=== PATIENT | female | born 1970 | race Caucasian/White ===

== ENCOUNTER 2023-05-21 12:50 | Inpatient (IN) | payer MEDICAID, OTHER ==
[~2023-05-21] VITALS: Ht 167.6 cm; Wt 54.0 kg
[2023-05-21] MEDS: SODIUM CHLORIDE 0.9% 1,000 ML IV ONE (13:44)
[2023-05-21 14:21] LABS: BASOPHILS % 0.4 % (0.0-2.0); EOSINOPHILS % 0.7 % (0.0-5.0); HEMATOCRIT. 33.8 % (36.0-48.0); HEMOGLOBIN. 11.4 g/dL (12.0-16.0); LYMPHOCYTES % 11.9 % (20.0-50.0); MEAN CORPUSCULAR HEMOGLOBIN 31.6 pg (28.0-32.0); MEAN CORPUSCULAR HGB CONC 33.8 g/dL (31.0-37.0); MEAN CORPUSCULAR VOLUME 93.4 fL (81.0-99.0); MEAN PLATELET VOLUME 9.2 fl (7.4-10.4); MONOCYTES % 8.6 % (2.0-8.0); NEUTROPHILS % 78.4 % (40.0-76.0); PLATELET 175 x1000/uL (130-400); RED BLOOD CELL COUNT 3.62 mill/uL (4.2-5.4); RED CELL DISTRIBUTION WIDTH 12.8 % (11.6-14.6); WHITE BLOOD COUNT 6.5 x1000/uL (4.5-11.0)
[2023-05-21 14:30] LABS: PROTHROMBIN TIME 10.9 sec (9.6-11.0)
[2023-05-21 14:38] LABS: ALANINE AMINOTRANSFERASE 17 IU/L (10-49); ALBUMIN 4.1 g/dL (3.2-4.8); ASPARTATE AMINOTRANSFERASE 21 IU/L (<34); BILIRUBIN TOTAL 0.3 mg/dL (0.1-1.0); CALCIUM 9.1 mg/dL (8.7-10.4); CARBON DIOXIDE 23 mEq/L (21-32); CHLORIDE 111 mEq/L (98-107); CREATININE 2.1 mg/dL (0.6-1.0); GLUCOSE 105 mg/dL (70-105); POTASSIUM 3.6 mEq/L (3.5-5.1); SODIUM 143 mEq/L (136-145); THYROID STIMULATING HORMONE 2.48 uIU/mL (0.55-4.78); TROPONIN I HIGH SENSITIVITY 6 ng/L (3.0-34); UREA NITROGEN BLOOD 37 mg/dL (9-23)
[2023-05-21 18:58] LABS: CLARITY URINE CLEAR (CLEAR); COLOR URINE YELLOW (YELLOW); GLUCOSE URINE NEGATIVE (NEGATIVE); KETONES URINE NEGATIVE (NEGATIVE); LEUKOCYTE ESTERASE URINE NEGATIVE (NEGATIVE); NITRITE URINE NEGATIVE (NEGATIVE); OCCULT BLOOD URINE NEGATIVE (NEGATIVE); PH URINE 6.5 (4.5-8.0); PROTEIN URINE NEGATIVE (NEGATIVE); SPECIFIC GRAVITY URINE 1.007 (1.005-1.030); UROBILINOGEN URINE 0.2 E.U./dL (0.2-1.0)
[2023-05-21 22:30] VITALS: BP 148/102; PULSE 84; RESP 18; TEMP 98.9
[2023-05-22] VITALS (7 sets, daily range): BP systolic 135–164; BP diastolic 86–102; PULSE 63–84; RESP 16–18; TEMP 97.3–98.9
[2023-05-22] MEDS ORDERED: NALOXONE HCL 0.4MG/ML VIAL IV PRN (00:15)
[2023-05-22 00:24] LABS: TROPONIN I HIGH SENSITIVITY 12 ng/L (3.0-34)
[2023-05-22] MEDS: HYDROCODONE/ACETAMINOPHEN 5/325MG TABLET PO PRN (01:41)
[2023-05-22 06:49] LABS: HEMOGLOBIN 10.7 g/dL (12.0-16.0); MEAN CORPUSCULAR HEMOGLOBIN 32.3 pg (28.0-32.0); MEAN CORPUSCULAR HGB CONC 34.5 g/dL (31.0-37.0); MEAN CORPUSCULAR VOLUME 93.5 fL (81.0-99.0); PLATELET 178 x1000/uL (130-400); RED BLOOD CELL COUNT 3.32 mill/uL (4.2-5.4); WHITE BLOOD COUNT 6.8 x1000/uL (4.5-11.0)
[2023-05-22 07:14] LABS: CALCIUM 9.2 mg/dL (8.7-10.4); CREATININE 1.9 mg/dL (0.6-1.0); POTASSIUM 3.7 mEq/L (3.5-5.1)
[2023-05-22] MEDS: ASPIRIN 81MG TABLET PO SCH (08:39)
[2023-05-22] MEDS ORDERED: NIFE-33 PO (09:45)
[2023-05-22] MEDS ORDERED: HYDR-4134 PO (09:45)
[2023-05-22] MEDS ORDERED: ATOR-2 PO (09:45)
[2023-05-22] MEDS ORDERED: BACL-141 PO (09:45)
[2023-05-22] MEDS: ONDANSETRON HCL 4MG/2ML INJ IV PRN (11:28)
[2023-05-22] MEDS: CLOPIDOGREL 75MG TABLET PO SCH (20:41)
[2023-05-22] MEDS: ATORVASTATIN CALCIUM 40MG TABLET PO SCH (20:41)
[2023-05-23 07:19] LABS: BASOPHILS % 0.4 % (0.0-2.0); EOSINOPHILS % 1.6 % (0.0-5.0); HEMATOCRIT. 32.3 % (36.0-48.0); HEMOGLOBIN. 10.9 g/dL (12.0-16.0); MEAN CORPUSCULAR HEMOGLOBIN 31.5 pg (28.0-32.0); MEAN CORPUSCULAR HGB CONC 33.7 g/dL (31.0-37.0); MEAN CORPUSCULAR VOLUME 93.5 fL (81.0-99.0); MEAN PLATELET VOLUME 9.3 fl (7.4-10.4); MONOCYTES % 9.7 % (2.0-8.0); NEUTROPHILS % 70.3 % (40.0-76.0); PLATELET 179 x1000/uL (130-400); RED BLOOD CELL COUNT 3.45 mill/uL (4.2-5.4); WHITE BLOOD COUNT 7.1 x1000/uL (4.5-11.0)
[2023-05-23 07:36] LABS: CALCIUM 9.5 mg/dL (8.7-10.4); CREATININE 1.9 mg/dL (0.6-1.0); POTASSIUM 3.6 mEq/L (3.5-5.1)
[2023-05-23 08:00] VITALS: BP 151/103; PULSE 72; RESP 18; TEMP 97.5
[2023-05-23] MEDS: POTASSIUM CHLORIDE 20MEQ TABLET SR PO NR (08:45)
[2023-05-23 11:33] LABS: CREATINE KINASE 364 IU/L (34-145)
[2023-05-23 12:00] VITALS: BP 159/116; PULSE 90; RESP 18; TEMP 98.1
[2023-05-23] MEDS: PREDNISONE 20MG TABLET PO SCH (12:16)
[2023-05-23 12:53] LABS: IRON 34 ug/dL (50-170); TOTAL IRON BINDING CAPACITY 164 ug/dl (250-425)
[2023-05-23] MEDS: HYDRALAZINE HCL 50MG TABLET PO SCH (13:33)
[2023-05-23 16:00] VITALS: BP 153/103; PULSE 100; RESP 18; TEMP 97
[2023-05-23] MEDS: NIFEDIPINE XL 30MG TAB PO SCH (16:51)
[2023-05-23 20:00] VITALS: BP 147/108; PULSE 85; RESP 18; TEMP 97.9
[2023-05-24] VITALS: BP 133/97; PULSE 89; RESP 18; TEMP 98
[2023-05-24 04:00] VITALS: BP 131/89; PULSE 89; RESP 17; TEMP 97.3
[2023-05-24 08:00] VITALS: BP 130/86; PULSE 118; RESP 20; TEMP 97
[2023-05-24 09:31] LABS: CALCIUM 9.6 mg/dL (8.7-10.4); CARBON DIOXIDE 22 mEq/L (21-32); CHLORIDE 111 mEq/L (98-107); GLUCOSE 109 mg/dL (70-105); PHOSPHORUS 3.4 mg/dL (2.5-4.9); POTASSIUM 3.8 mEq/L (3.5-5.1); SODIUM 143 mEq/L (136-145); UREA NITROGEN BLOOD 30 mg/dL (9-23)
[2023-05-24 09:32] LABS: BASOPHILS % 0.3 % (0.0-2.0); EOSINOPHILS % 0.2 % (0.0-5.0); HEMATOCRIT. 33.1 % (36.0-48.0); HEMOGLOBIN. 11.3 g/dL (12.0-16.0); MEAN CORPUSCULAR HEMOGLOBIN 31.6 pg (28.0-32.0); MEAN PLATELET VOLUME 9.5 fl (7.4-10.4); MONOCYTES % 10.6 % (2.0-8.0); NEUTROPHILS % 75.9 % (40.0-76.0); PLATELET 215 x1000/uL (130-400); RED BLOOD CELL COUNT 3.56 mill/uL (4.2-5.4); RED CELL DISTRIBUTION WIDTH 13.1 % (11.6-14.6); WHITE BLOOD COUNT 8.5 x1000/uL (4.5-11.0)
[2023-05-24 12:00] VITALS: BP 129/83; PULSE 117; RESP 20; TEMP 97.7
[2023-05-24] MEDS ORDERED: P20 PO (12:23)
[2023-05-24] MEDS ORDERED: ASPI-1160 PO (12:23)
[2023-05-24] MEDS ORDERED: CLOP-31 PO (12:23)
[2023-05-24 16:00] VITALS: BP 118/79; PULSE 88; RESP 20; TEMP 97.9
[2023-05-24 20:00] VITALS: BP 139/94; PULSE 113; RESP 20; TEMP 99
[2023-05-24] MEDS: BACLOFEN 10MG TABLET PO SCH (20:53)
[2023-05-25] VITALS: BP 133/93; PULSE 89; RESP 18; TEMP 98.2
[2023-05-25 04:00] VITALS: BP 133/91; PULSE 82; RESP 19; TEMP 96.8
[2023-05-25 08:00] VITALS: BP 133/87; PULSE 103; RESP 21; TEMP 97.7
[2023-05-25 09:07] LABS: COMPLEMENT C3 104 mg/dL (82-167); COMPLEMENT C4 27 mg/dL (12-38)
[2023-05-25] MEDS ORDERED: PRED10TA MT (09:11)
[2023-05-25] MEDS ORDERED: WARF2.5T83 MT (09:11)
[2023-05-25 11:21] VITALS: BP 133/87; PULSE 103; TEMP 97.9; O2SAT 99
[2023-05-25] MEDS ORDERED: CYCL5TAB MT (12:56)
[2023-05-25 13:07] LABS: ANTI-DNA DOUBLE STRANDED QUANT 2 IU/mL (0-9); RNP ANTIBODY < 0.2 AI (0.0-0.9); SMITH ANTIBODY < 0.2 AI (0.0-0.9)
[2023-05-25 13:28] VITALS: BP 132/86; PULSE 104; RESP 20; TEMP 98.1
[2023-05-27 04:10] LABS: ANTI-CARDIOLIPIN AB IGA < 9 APL U/mL (0-11); ANTI-CARDIOLIPIN AB IGG < 9 GPL U/mL (0-14); ANTI-CARDIOLIPIN AB IGM < 9 MPL U/mL (0-12)
[2023-05-27 13:10] LABS: ATYPICAL P-ANCA <1:20 titer (Neg:<1:20); CYTOPLASMIC C-ANCA <1:20 titer (Neg:<1:20); PERINUCLEAR P-ANCA <1:20 titer (Neg:<1:20)
[2023-05-27 19:09] LABS: ANTI-MYELOPEROXIDASE AB < 0.2 units (0.0-0.9); ANTI-PROTEINASE 3 ABS 0.4 units (0.0-0.9)
== END 2023-05-25 14:47 | disposition home or self-care (01) | DRG 45 ==
LOC: ER 12:50 → 7EST 16:17 → EDBEDREQ 16:22
PROVIDERS: ADMIT Internal Medicine; ATTEND Internal Medicine
DX: I63.81 Other cerebral infarction due to occlusion or stenosis of small artery (principal); N17.9 Acute kidney failure, unspecified; I69.351 Hemiplegia and hemiparesis following cerebral infarction affecting right dominant side; E78.5 Hyperlipidemia, unspecified; N18.9 Chronic kidney disease, unspecified; I12.9 Hypertensive chronic kidney disease with stage 1 through stage 4 chronic kidney disease, or unspecified chronic kidney disease; R47.1 Dysarthria and anarthria; E87.6 Hypokalemia
CPT/HCPCS: 36415; 70551; 71045; 76770; 80048; 80053; 80061; 81003; 82550; 82595; 82728; 83036; 83516; 83520; 83540; 83550; 83735; 83880; 84100; 84443; 84484; 85025; 85027; 85379; 86147; 86160; 86225; 86235; 86256; 92523; 93306; 93880; 97162; 97166; 97530; 97535; 99291; J2405; J7030; J7512

== ENCOUNTER 2023-06-05 13:26 | Emergency (ER) | payer OTHER ==
[~2023-06-05] VITALS: Ht 157.5 cm; Wt 53.0 kg
[~2023-06-05 13:26] MED LIST: ASPI-1160 PO; ATOR-2 PO; CYCL5TAB MT; HYDR-4134 PO; NIFE-33 PO; PRED10TA MT; WARF2.5T83 MT
[2023-06-05 13:51] VITALS: BP 139/99; PULSE 112; RESP 18; TEMP 98.2; O2SAT 98
[2023-06-06] MEDS ORDERED: CYCL5TAB MT (21:33)
[2023-06-06] MEDS ORDERED: CEPH500C2 MT (21:33)
[2023-06-06] MEDS ORDERED: CEFP200T13 MT (23:23)
[2023-06-07] MEDS ORDERED: HYDR-4134 PO (11:38)
[2023-06-07] MEDS ORDERED: NIFE-33 PO (11:40)
== END 2023-06-05 18:07 | disposition left against medical advice (07) ==
LOC: ER 13:26
DX: R31.9 Hematuria, unspecified (principal); E78.00 Pure hypercholesterolemia, unspecified; I10 Essential (primary) hypertension; Z86.73 Personal history of transient ischemic attack (TIA), and cerebral infarction without residual deficits; Z79.899 Other long term (current) drug therapy; Z98.890 Other specified postprocedural states
CPT/HCPCS: 99281